=== PATIENT | female | born 1960 ===

== ENCOUNTER 2025-09-21 06:17 | Day surgery (SDC) | payer OTHER, SELFPAY | END 2025-09-21 08:46 | disposition home or self-care (01) | LOC: GI 06:17 | PROVIDERS: ATTENDING PHYSICIAN Internal Medicine Gastroenterology; FAMILY PHYSICIAN Family Medicine | DX: Z12.11 Encounter for screening for malignant neoplasm of colon (principal); D12.2 Benign neoplasm of ascending colon; K63.5 Polyp of colon; D12.5 Benign neoplasm of sigmoid colon; K57.30 Diverticulosis of large intestine without perforation or abscess without bleeding; K62.89 Other specified diseases of anus and rectum; K64.4 Residual hemorrhoidal skin tags | CPT/HCPCS: 45385; 45380; 88305 ==